=== PATIENT | female | born 1965 | race Caucasian/White ===

== ENCOUNTER 2018-06-19 08:46 | Day surgery (SDC) | payer OTHER ==
[2018-06-19] MEDS: Lactated Ringer's 500 ML IV ONE (09:29)
[2018-06-19] MEDS ORDERED: Propofol 10 mg/ml Inj (20 ML) ONE (10:42)
[2018-06-19 11:10] VITALS: TEMP 99; O2SAT 100
[2018-06-19 11:40] VITALS: BP 123/78; PULSE 80; RESP 15
== END 2018-06-19 11:50 | disposition home or self-care (01) ==
LOC: H.ENDO 08:46
PROVIDERS: ATTEND Internal Medicine Gastroenterology
DX: R19.4 Change in bowel habit (principal); E78.5 Hyperlipidemia, unspecified; K21.9 Gastro-esophageal reflux disease without esophagitis; D12.3 Benign neoplasm of transverse colon; D64.0 Hereditary sideroblastic anemia; K64.8 Other hemorrhoids; K62.5 Hemorrhage of anus and rectum
CPT/HCPCS: 45380; 88305; J2001; J2704; J7120

== ENCOUNTER 2018-07-17 10:34 | Day surgery (SDC) | payer OTHER ==
[2018-07-17] MEDS ORDERED: Lactated Ringer's 500 ML IV ONE ×2 (11:25→11:50)
[2018-07-17] MEDS ORDERED: Propofol 10 mg/ml Inj (20 ML) ONE (11:33)
[2018-07-17 12:03] VITALS: BMI 24.1
[2018-07-17 13:07] VITALS: O2SAT 100
[2018-07-17 13:14] VITALS: BP 100/64; PULSE 60; RESP 20; TEMP 97.4
== END 2018-07-17 15:20 | disposition home or self-care (01) ==
LOC: H.ENDO 10:34
PROVIDERS: ATTEND Internal Medicine Gastroenterology
DX: R10.13 Epigastric pain (principal); K31.89 Other diseases of stomach and duodenum; K31.7 Polyp of stomach and duodenum
CPT/HCPCS: 43239; 88305; J2001; J2704; J7120